=== PATIENT | female | born 1985 | race Two or more races ===

== ENCOUNTER 2016-12-03 23:07 | Outpatient (CLI) | payer MEDICAID ==
[~2016-12-03] VITALS: Ht 167.6 cm; Wt 92.0 kg
[~2016-12-03 23:07] MED LIST: PREN1TAB10 PO
[2016-12-03 23:28] VITALS: BP 119/56
== END 2016-12-04 00:23 | disposition home or self-care (01) ==
LOC: LDOP 23:07
PROVIDERS: ATTEND Obstetrics & Gynecology
DX: O62.9 Abnormality of forces of labor, unspecified (principal); Z3A.39 39 weeks gestation of pregnancy
CPT/HCPCS: 59025; 99211; G0463

== ENCOUNTER 2016-12-05 04:13 | Outpatient (CLI) | payer MEDICAID ==
[~2016-12-05] VITALS: Ht 170.2 cm; Wt 92.3 kg
[2016-12-08] MEDS ORDERED: IBUP-1222 PO (09:36)
[2016-12-08] MEDS ORDERED: DOCU-30 PO (09:37)
== END 2016-12-05 05:00 | disposition home or self-care (01) ==
LOC: LDOP 04:13
PROVIDERS: ATTEND Obstetrics & Gynecology
DX: O42.92 Full-term premature rupture of membranes, unspecified as to length of time between rupture and onset of labor (principal); O26.893 Other specified pregnancy related conditions, third trimester; O46.93 Antepartum hemorrhage, unspecified, third trimester; O48.0 Post-term pregnancy; R10.9 Unspecified abdominal pain; Z3A.40 40 weeks gestation of pregnancy
CPT/HCPCS: 59025; 99211; G0463

== ENCOUNTER 2016-12-06 03:11 | Outpatient (CLI) | payer MEDICAID ==
[~2016-12-06] VITALS: Ht 170.2 cm; Wt 94.0 kg
[2016-12-06] MEDS ORDERED: ZOLPIDEM 5MG TABLET ONE (05:09)
[2016-12-06] MEDS ORDERED: ZOLPIDEM 5MG TABLET PO ONE (05:30)
[2016-12-08] MEDS ORDERED: IBUP-1222 PO (09:36)
[2016-12-08] MEDS ORDERED: DOCU-30 PO (09:37)
== END 2016-12-06 05:15 | disposition home or self-care (01) ==
LOC: LDOP 03:11
PROVIDERS: ATTEND Obstetrics & Gynecology
DX: O26.893 Other specified pregnancy related conditions, third trimester (principal); O62.9 Abnormality of forces of labor, unspecified; O48.0 Post-term pregnancy; R10.9 Unspecified abdominal pain; Z3A.40 40 weeks gestation of pregnancy
CPT/HCPCS: 59025; 99211; G0463